=== PATIENT | female | born 1990 | race Caucasian/White ===

== ENCOUNTER 2016-08-31 18:32 | Emergency (ER) | payer OTHER ==
[2016-08-31 21:56] LABS: HEMOGLOBIN 14.1 gm/dl (12.3-15.3); RED BLOOD COUNT 4.38 M/UL (4.00-5.10); WHITE BLOOD COUNT 13.2 K/UL (4.5-11.0)
[2016-08-31 22:18] LABS: BUN/CREATININE RATIO 18 (0-10)
== END 2016-08-31 23:00 | disposition left against medical advice (07) ==
LOC: ER1 18:32
PROVIDERS: Emergency Medicine
DX: O99.89 Other specified diseases and conditions complicating pregnancy, childbirth and the puerperium (principal); R07.89 Other chest pain; R06.02 Shortness of breath; O16.2 Unspecified maternal hypertension, second trimester; O99.332 Smoking (tobacco) complicating pregnancy, second trimester; F17.200 Nicotine dependence, unspecified, uncomplicated; Z3A.15 15 weeks gestation of pregnancy; Z86.711 Personal history of pulmonary embolism; Z99.81 Dependence on supplemental oxygen
CPT/HCPCS: 36415; 76805; 80053; 81001; 82550; 82553; 83874; 84484; 84702; 85025; 85379; 85610; 85730; 86900; 86901; 96360; 99285; J7030

== ENCOUNTER 2016-10-29 18:41 | Outpatient (CLI) | payer OTHER | END 2016-10-29 19:42 | disposition home or self-care (01) | LOC: GENOP 18:41 | DX: O99.89 Other specified diseases and conditions complicating pregnancy, childbirth and the puerperium (principal); R10.13 Epigastric pain; Z3A.23 23 weeks gestation of pregnancy | CPT/HCPCS: G0463 ==

== ENCOUNTER 2021-12-30 15:06 | Emergency (ER) | payer OTHER ==
[2021-12-30 16:02] LABS: HEMOGLOBIN 13.3 gm/dl (12.3-15.3); RED BLOOD COUNT 4.28 M/UL (4.00-5.10); WHITE BLOOD COUNT 11.1 K/UL (4.5-11.0)
[2021-12-30 16:36] LABS: BUN/CREATININE RATIO 22 (0-10)
== END 2021-12-30 20:00 | disposition left against medical advice (07) ==
LOC: ER1 15:06
PROVIDERS: Physician Assistant
DX: O99.891 Other specified diseases and conditions complicating pregnancy (principal); R07.9 Chest pain, unspecified; O99.892 Other specified diseases and conditions complicating childbirth; F17.200 Nicotine dependence, unspecified, uncomplicated; I11.9 Hypertensive heart disease without heart failure; E11.9 Type 2 diabetes mellitus without complications; I25.2 Old myocardial infarction; Z86.711 Personal history of pulmonary embolism; Z86.73 Personal history of transient ischemic attack (TIA), and cerebral infarction without residual deficits; Z3A.22 22 weeks gestation of pregnancy
CPT/HCPCS: 80053; 82550; 82553; 84484; 85025; 93005; 99283